=== PATIENT | male | born 1945 | race Caucasian/White ===

== ENCOUNTER 2019-05-30 14:38 | Outpatient (CLI) | payer MEDICARE | END 2019-05-30 23:59 | disposition home or self-care (01) | LOC: CFH 14:38 | PROVIDERS: ATTEND Family Medicine | DX: I66.01 Occlusion and stenosis of right middle cerebral artery (principal); J32.0 Chronic maxillary sinusitis; Z82.49 Family history of ischemic heart disease and other diseases of the circulatory system | CPT/HCPCS: 70544; 70553; A9585 ==

== ENCOUNTER → 2019-09-01 | Outpatient (CLI) | payer MEDICARE ==
[~2019-09-01] MED LIST: REGADENOSON 0.4 MG/5 ML SYRINGE ONE
== END | disposition home or self-care (01) ==
LOC: CFH 12:43
PROVIDERS: ATTEND Registered Nurse
DX: R07.89 Other chest pain (principal); I10 Essential (primary) hypertension; E78.5 Hyperlipidemia, unspecified
CPT/HCPCS: 78452; 93017; A9502; J2785

== ENCOUNTER → 2019-11-03 | Outpatient (CLI) | payer MEDICARE | END | disposition home or self-care (01) | LOC: CFH 14:22 | PROVIDERS: ATTEND Specialist | DX: J34.2 Deviated nasal septum (principal); H95.12 Granulation of postmastoidectomy cavity; J32.9 Chronic sinusitis, unspecified; J34.89 Other specified disorders of nose and nasal sinuses; M77.8 Other enthesopathies, not elsewhere classified | CPT/HCPCS: 70486 ==